=== PATIENT | female | born 1955 | race Caucasian/White ===

== ENCOUNTER 2017-07-10 08:00 | Outpatient (CLI) | payer BC | END 2017-07-10 08:01 | disposition home or self-care (01) | LOC: BICMAMMO 08:00 | PROVIDERS: ATTEND Family Medicine | DX: N63.20 Unspecified lump in the left breast, unspecified quadrant (principal) | CPT/HCPCS: 77066; G0204; G0279 ==

== ENCOUNTER 2018-06-21 09:32 | Outpatient (CLI) | payer MEDICARE, BC | END 2018-06-21 09:33 | disposition home or self-care (01) | LOC: BICULT 09:32 | PROVIDERS: ATTEND Family Medicine | DX: N63.20 Unspecified lump in the left breast, unspecified quadrant (principal); Z80.3 Family history of malignant neoplasm of breast | CPT/HCPCS: 77066; G0279 ==

== ENCOUNTER 2019-01-07 08:14 | Outpatient (CLI) | payer MEDICARE, BC ==
--- NOTE | 2019-01-07 08:55 | RAD ---
XR Knee Rt 4 View STANDARD HISTORY: Pain in right knee FINDINGS: No fracture or dislocation is identified. Degenerative changes are present.
--- NOTE | 2019-01-07 11:01 | RAD ---
LEFT KNEE FOUR VIEWS: HISTORY: Left knee pain. FINDINGS: Joint spaces are preserved. Mild tricompartmental osteophytosis. No acute fracture, dislocation, or fluid distention of the suprapatellar bursa. IMPRESSION: Very mild osteoarthritic changes, left knee. POS: [facility]
--- NOTE | 2019-01-07 11:03 | RAD ---
RADIOGRAPH LEFT HIP TWO VIEWS: 01/07/2019 HISTORY: A 63-year-old female with left hip pain. FINDINGS: No fracture or dislocation. Femoral head contour is maintained. No subcapital osteophytes. No high -grade osteophytosis of the acetabular roof. Hip joint space is maintained. There are mild to moder ate degenerative changes at the left SI joint. IMPRESSION: 1. Normal left hip. 2. 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 POS: [facility]
--- NOTE | 2019-01-07 11:04 | RAD ---
RIGHT HIP TWO VIEWS: 01/07/2019 PROVIDED CLINICAL HISTORY: Right hip pain. FINDINGS: There is no evidence for fracture or other acute osseous abnormality. Alignment appears anatomic. T ight hip joint space appears preserved. IMPRESSION: No evidence for acute osseous abnormality or significant arthropathy involving the right hip. POS: [facility]
== END 2019-01-07 08:15 | disposition home or self-care (01) ==
LOC: BICRAD 08:14
PROVIDERS: ATTEND Family Medicine
DX: M25.562 Pain in left knee (principal); M25.561 Pain in right knee; M25.552 Pain in left hip; M25.551 Pain in right hip; M53.3 Sacrococcygeal disorders, not elsewhere classified; M17.12 Unilateral primary osteoarthritis, left knee

== ENCOUNTER 2019-02-21 20:30 | Outpatient (CLI) | payer MEDICARE, BC | END 2019-02-21 20:31 | disposition home or self-care (01) | LOC: SLEEPLAB 20:30 | PROVIDERS: ATTEND Family Medicine | DX: G47.33 Obstructive sleep apnea (adult) (pediatric) (principal); E66.9 Obesity, unspecified; R06.83 Snoring; I10 Essential (primary) hypertension; E11.9 Type 2 diabetes mellitus without complications; R53.83 Other fatigue; R09.89 Other specified symptoms and signs involving the circulatory and respiratory systems; Z68.33 Body mass index [BMI] 33.0-33.9, adult | CPT/HCPCS: 95811 ==

== ENCOUNTER 2019-06-23 11:12 | Outpatient (CLI) | payer MEDICARE, BC ==
--- NOTE | 2019-06-23 12:34 | MMO ---
Bilateral MAMMO Bilat Screen DDI+EFREN. CLINICAL HISTORY: Patient is 64 years old and is seen for screening. The patient has no family history of breast cancer. The patient has no personal history of cancer. The patient has a history of right Excisional Biopsy in April, - benign. VIEWS: The views performed were: bilateral craniocaudal with tomosynthesis and bilateral mediolateral oblique with tomosynthesis. FILMS COMPARED: The present examination has been compared to prior imaging studies performed at [facility] on 12/07/2014, 12/14/2015, 07/10/2017 and 06/21/2018. This study has been interpreted with the assistance of computer-aided detection. MAMMOGRAM FINDINGS: There are scattered fibroglandular densities. There are stable benign appearing calcifications seen in both breasts. There are no suspicious masses, suspicious calcifications, or new areas of architectural distortion. IMPRESSION: THERE IS NO MAMMOGRAPHIC EVIDENCE OF MALIGNANCY. A ROUTINE FOLLOW-UP MAMMOGRAM IN 1 YEAR IS RECOMMENDED. THE RESULTS OF THIS EXAM WERE SENT TO THE PATIENT. ACR BI-RADS Category 2 - Benign finding MAMMOGRAPHY NOTE: 1. A negative mammogram report should not delay a biopsy if a dominant of clinically suspicious mass is present. 2. Approximately 10% to 15% of breast cancers are not detected by mammography. 3. Adenosis and dense breasts may obscure an underlying neoplasm. Reported by: AMADOR FENG MD Electonically Signed: [id number]
== END 2019-06-23 11:13 | disposition home or self-care (01) ==
LOC: BICMAMMO 11:12
PROVIDERS: ATTEND Family Medicine
DX: Z12.31 Encounter for screening mammogram for malignant neoplasm of breast (principal); Z91.89 Other specified personal risk factors, not elsewhere classified
CPT/HCPCS: 77063; 77067

== ENCOUNTER 2019-09-24 13:12 | Outpatient (CLI) | payer MEDICARE, BC | END 2019-09-24 13:13 | disposition home or self-care (01) | LOC: DTY/OP 13:12 | PROVIDERS: ATTEND Family Medicine | DX: E11.65 Type 2 diabetes mellitus with hyperglycemia (principal) | CPT/HCPCS: 97802 ==

== ENCOUNTER 2020-07-28 10:43 | Outpatient (CLI) | payer MEDICARE, BC ==
--- NOTE | 2020-07-28 11:47 | MMO ---
Bilateral MAMMO Bilat Screen DDI+EFREN. CLINICAL HISTORY: Patient is 65 years old and is seen for screening. The patient has the following family history of breast cancer: cousin female, at age 35, malignant (generic). The patient has no personal history of cancer. The patient has a history of right Excisional Biopsy in April, - benign. VIEWS: The views performed were: bilateral craniocaudal with tomosynthesis and bilateral mediolateral oblique with tomosynthesis. FILMS COMPARED: The present examination has been compared to prior imaging studies performed at [facility] on 12/14/2015, 07/10/2017, 06/21/2018 and 06/23/2019. This study has been interpreted with the assistance of computer-aided detection. MAMMOGRAM FINDINGS: There are scattered fibroglandular densities. Finding 1: There are stable benign appearing calcifications seen in both breasts. Finding 2: There are multiple stable fat containing, round masses of varying size with circumscribed margins seen in the left breast. Finding 3: There is a focal asymmetry measuring 10 millimeters with indistinct margins and associated amorphous or indistinct calcifications seen in the outer region of the right breast. IMPRESSION: FINDING 1: STABLE CALCIFICATIONS IN BOTH BREASTS ARE BENIGN. FINDING 2: STABLE MASSES IN THE LEFT BREAST ARE BENIGN. FINDING 3: FOCAL ASYMMETRY IN THE RIGHT BREAST REQUIRES ADDITIONAL EVALUATION. ADDITIONAL PROJECTIONS (RIGHT CRANIOCAUDAL SPOT COMPRESSION; RIGHT CRANIOCAUDAL SPOT COMPRESSION MAGNIFICATION; RIGHT MEDIOLATERAL OBLIQUE SPOT COMPRESSION; RIGHT MEDIOLATERAL SPOT COMPRESSION; AND RIGHT MEDIOLATERAL SPOT COMPRESSION MAGNIFICATION) ARE RECOMMENDED. AN ULTRASOUND EXAM IS RECOMMENDED IF NEEDED. ADDITIONAL IMAGING. THE RESULTS OF THIS EXAM WERE SENT TO THE PATIENT. ACR BI-RADS Category 0 - Incomplete: Need additional imaging evaluation. [facility] will notify the patient of the need for additional imaging services. MAMMOGRAPHY NOTE: 1. A negative mammogram report should not delay a biopsy if a dominant of clinically suspicious mass is present. 2. Approximately 10% to 15% of breast cancers are not detected by mammography. 3. Adenosis and dense breasts may obscure an underlying neoplasm. Reported by: STEFFANIE BLOUNT MD Electonically Signed: [id number]
== END 2020-07-28 10:44 | disposition home or self-care (01) ==
LOC: BICMAMMO 10:43
PROVIDERS: ATTEND Family Medicine
DX: Z12.31 Encounter for screening mammogram for malignant neoplasm of breast (principal); Z80.3 Family history of malignant neoplasm of breast; Z91.89 Other specified personal risk factors, not elsewhere classified; R92.1 Mammographic calcification found on diagnostic imaging of breast; N63.20 Unspecified lump in the left breast, unspecified quadrant; N64.89 Other specified disorders of breast
CPT/HCPCS: 77063; 77067

== ENCOUNTER 2020-07-29 14:51 | Outpatient (CLI) | payer MEDICARE, BC ==
--- NOTE | 2020-07-29 16:02 | MMO ---
Right Breast MAMMO Unilat Diag DDI RT+EFREN. CLINICAL HISTORY: Patient is 65 years old and is seen for diagnostic exam. The patient has the following family history of breast cancer: cousin female, at age 35, malignant (generic). The patient has no personal history of cancer. The patient has a history of right Excisional Biopsy in April, - benign. VIEWS: The views performed were: right craniocaudal spot compression magnification; right craniocaudal spot compression with tomosynthesis; right mediolateral oblique spot compression with tomosynthesis; right mediolateral spot compression magnification; and right mediolateral with tomosynthesis. FILMS COMPARED: The present examination has been compared to prior imaging studies performed at [facility] on 06/21/2018, 06/23/2019, 07/28/2020 and 07/29/2020. This study has been interpreted with the assistance of computer-aided detection. MAMMOGRAM FINDINGS: Additional views were performed. The focal density with tiny calcs @ 9:00 right breast corresponds to a solid mass on US and should be biopsied. IMPRESSION: FINDING IN THE RIGHT BREAST IS SUSPICIOUS. AN ULTRASOUND-GUIDED BREAST BIOPSY IS RECOMMENDED. THE RESULTS OF THIS EXAM WERE SENT TO THE PATIENT. ACR BI-RADS Category 4 - Suspicious abnormality - biopsy should be considered D/W pt in person @ 3:45 pm MAMMOGRAPHY NOTE: 1. A negative mammogram report should not delay a biopsy if a dominant of clinically suspicious mass is present. 2. Approximately 10% to 15% of breast cancers are not detected by mammography. 3. Adenosis and dense breasts may obscure an underlying neoplasm. Reported by: HERMILA ABEBE MD Electonically Signed: [id number]
--- NOTE | 2020-07-29 16:10 | ULT ---
LIMITED RIGHT BREAST ULTRASOUND: 07/29/20 HISTORY: Abnormal mammogram. FINDINGS: Correlation is made with mammograms of 07/28/20 and 07/29/20. Sonographic evaluation of the outer region of the right breast demonstrates an approximately 1 x 1.2 x 0.8 cm solid appearing somewhat shadowing mass at the 9 o'clock position of the right breast, 3 cm from the nipple in the region of the mammographic abnormality. There is some flow demonstrated to the mass. The tiny calcifications noted on the mammogram are vaguely seen on the ultrasound. IMPRESSION: BI-RADS 4: Suspicious Abnormality - Biopsy Should Be Considered Usually requires biopsy. Ultrasound guided biopsy is recommended. Discussed in person with the patient at 3:45 p.m. POS: [facility]
== END 2020-07-29 14:52 | disposition home or self-care (01) ==
LOC: BICMAMMO 14:51
PROVIDERS: ATTEND Family Medicine
DX: R92.8 Other abnormal and inconclusive findings on diagnostic imaging of breast (principal)
CPT/HCPCS: 76642; 77065; G0279

== ENCOUNTER → 2020-08-05 | Day surgery (SDC) | payer MEDICARE, BC ==
--- NOTE | 2020-08-05 13:57 | MMO ---
FILMS COMPARED: The present examination has been compared to prior imaging studies performed at [facility] on 06/23/2019, 07/28/2020 and 07/29/2020. MAMMOGRAM FINDINGS: There is a biopsy clip seen in the anterior of the right breast. The clip is at the 9:00 - 10:00 position, at the targeted small breast lesion. IMPRESSION: BIOPSY CLIP IN THE RIGHT BREAST IS CONFIRMED UTILIZING POST PROCEDURE MAMMOGRAM. Reported by: FABIEN CHU MD Electonically Signed: [id number]
--- NOTE | 2020-08-05 16:08 | ULT ---
ULTRASOUND-GUIDED BREAST BIOPSY RIGHT: DATE: 08/05/2020 HISTORY: 65-Year-old female with mass in 9:00 position, superficial location, right breast. TECHNIQUE: Signed informed consent obtained. Breast skin prepared and draped in usual sterile fashion. Procedure performed under ultrasound guidance. 25-gauge needle used to apply buffered lidocaine superficially and deeply. 13 gauge introducer needle advanced to the edge of targeted lesion. 14 gaug e advanced through the introducer needle in coaxial fashion. Biopsy gun fired, yielding core tissue sample, which was placed in formalin. This was repeated, for a total of 3 passes. A postbiopsy clip w as deployed through the introducer needle. Introducer needle was removed. Manual compression was applied until hemostasis was achieved. Patient tolerated the procedure well. No complications. IMPRESSION: Technically successful 14 gauge core biopsy of right breast lesion x 3
== END ==
LOC: BICULT 12:38
PROVIDERS: ATTEND Family Medicine
PROC: 0H9T3ZX Drainage of Right Breast, Percutaneous Approach, Diagnostic (ICD-10-PCS; principal; 2020-08-05)
DX: C50.811 Malignant neoplasm of overlapping sites of right female breast (principal)
CPT/HCPCS: 19083; 88305; 88341; 88342

== ENCOUNTER 2020-09-16 13:14 | Outpatient (CLI) | payer MEDICARE, BC ==
[2020-09-16 14:45] LABS: #Eosinphils 0.1 10x3/uL (0.0-0.5); #Monocytes 0.5 10x3/uL (0.0-1.1); %Basophils 0.7 % (0.0-2.0); %Eosinophils 1.8 % (0.0-6.0); %Monocytes 7.5 % (0.0-10.0); %Neutrophils 49.5 % (40.0-75.0); Hemoglobin 12.8 g/dL (12.0-15.5); Mean Corpuscular HGB CONC 32.7 g/dL (32.0-36.0); Mean Corpuscular Hemoglobin 32.2 pg (27.0-33.0); Mean Corpuscular Volume 98.7 fl (81.6-98.3); Mean Platelet Volume 10.9 fl (7.4-10.4); Platelet Count 286 10x3/uL (150-450); RBC Distribution Width 12.4 % (11.5-14.5); Red Blood Cell (RBC) Count 3.97 10x6/uL (3.90-5.03); White Blood Cell (WBC) Count 6.1 10x3/uL (3.5-10.5)
[2020-09-16 15:18] LABS: Anion Gap 14 mmol/L (10-20); BUN (Urea Nitrogen) 15 mg/dL (9.8-20.1); Calc. Creatinine Clearance 0 mL/min (70-130); Calcium 10.2 mg/dL (7.8-10.44); Carbon Dioxide 26 mmol/L (23-31); Chloride 105 mmol/L (98-107); Glucose 207 mg/dL (80-115); Potassium 4.1 mmol/L (3.5-5.1); Sodium 141 mmol/L (136-145)
--- NOTE | 2020-09-16 21:05 | EKG ---
Test Reason : Blood Pressure : / mmHG Vent. Rate : 073 BPM Atrial Rate : 073 BPM P-R Int : 150 ms QRS Dur : 080 ms QT Int : 394 ms P-R-T Axes : 045 048 044 degrees QTc Int : 434 ms Normal sinus rhythm Normal ECG No previous ECGs available Confirmed by Kedar MOORE ([id number]) on 09/16/2020 9:05:26 PM Referred By: KINGS Confirmed By:Kedar MOORE
== END 2020-09-16 13:15 | disposition home or self-care (01) ==
LOC: LABBT 13:14
PROVIDERS: ATTEND Specialist
DX: Z01.818 Encounter for other preprocedural examination (principal); C50.911 Malignant neoplasm of unspecified site of right female breast; Z20.822 Contact with and (suspected) exposure to COVID-19
CPT/HCPCS: 80048; 85025; 93005; 93010

== ENCOUNTER 2020-09-21 07:20 | Day surgery (SDC) | payer MEDICARE, BC ==
[2020-09-20 12:21] VITALS: BMI 32.0
[2020-09-21] MEDS ORDERED: Ketorolac Tromethamine 30 MG/ML VIAL ONE ×2 (09:01→10:39)
[2020-09-21] MEDS ORDERED: Acetaminophen 500 MG TAB ONE (09:01)
--- NOTE | 2020-09-21 10:09 | NM ---
EXAM: NM Lymphoscintigraphy PROVIDED CLINICAL HISTORY: Malignant neoplasm of unspecified site right female breast COMPARISON: None FINDINGS: Approximately 422 uCi technetium 99m sulfur colloid was administered subcutaneously and intradermally in a right periareolar location. Immediate imaging was performed which demonstrates 2 closely adjacent foci of increased uptake of radiotracer overlying the anterior axilla likely corresponding t o sentinel lymph node. After imaging, patient was transported to surgery for excisional biopsy. IMPRESSION: Focal areas of increased uptake of radiotracer in the anterior right axilla likely corresponding to s entinel lymph node.
[2020-09-21] MEDS ORDERED: diphenhydrAMINE 50 MG/ML VIAL ONE (10:39)
[2020-09-21] MEDS ORDERED: Lidocaine 1% PF 5 ML VIAL ONE (10:39)
[2020-09-21] MEDS ORDERED: Ondansetron PF 4 MG/2 ML Vial ONE (10:39)
[2020-09-21] MEDS ORDERED: ePHEDrine 50 MG/ML VIAL ONE (10:39)
[2020-09-21] MEDS ORDERED: PROPOFOL 200 MG/20 ML VIAL ONE (10:39)
[2020-09-21] MEDS ORDERED: Fentanyl 100 MCG/2 ML VIAL ONE ×2 (11:37→13:06)
[2020-09-21] MEDS ORDERED: Lidocaine 1% w/Epinephrine 1:100K 20 ML VIAL ONE (11:41)
[2020-09-21] MEDS ORDERED: Bupivacaine 0.25% HCL 30 ML VIAL ONE (11:41)
[2020-09-21] MEDS ORDERED: Isosulfan Blue 50 MG/5 ML VIAL ONE (11:41)
--- NOTE | 2020-09-21 14:45 | RAD ---
CHEST 1 VIEW: HISTORY: MediPort placement. FINDINGS: Heart size is enlarged. Left-sided MediPort catheter has been placed. Catheter tip overlies the sup erior vena cava. No pneumothorax. IMPRESSION: MediPort catheter placement. No pneumothorax. POS: [facility]
--- NOTE | 2020-09-22 06:52 | OP ---
DATE OF PROCEDURE: 09/21/2020 PREOPERATIVE DIAGNOSIS: Right breast cancer. POSTOPERATIVE DIAGNOSIS: Right breast cancer. PROCEDURES PERFORMED: Placement of left subclavian standard-sized MediPort, ultrasound-guided needle localization of right breast cancer, right breast needle localized lumpectomy, right axillary sentinel lymph node biopsy. ANESTHESIA: General endotracheal. INDICATIONS: The patient is a 65-year-old female. She has been diagnosed with a relatively small (less than 1 cm) invasive ductal carcinoma of the upper outer right breast at about the 10 o'clock Radian. This is a triple negative breast cancer and postoperative chemotherapy has been recommended. For this reason, a MediPort will be placed as well as treatment of the cancer. DESCRIPTION OF PROCEDURE: Informed consent was obtained. Lymphoscintigraphy was performed by Radiology, revealing right axillary sentinel lymph nodes. She was taken to the operating room where general endotracheal anesthesia was obtained with the patient in supine position. The right breast and axilla and left chest were prepped with ChloraPrep and draped in sterile fashion. Attention was turned first to the left chest. Local anesthetic was infiltrated using a mixture of 1% lidocaine with epinephrine 0.25% Marcaine. Large gauge needle was passed under the clavicle in the subclavian vein. Guidewire was passed through the needle. Needle was removed, additional local anesthetic was infiltrated, and an incision was created based on needle insertion site. Subcutaneous pocket was dissected extending inferiorly. Introducer dilator was passed over the guidewire. The guidewire was removed. Catheter was placed through the introducer. All this was performed under fluoroscopic guidance. The introducer was removed in the usual peel-apart fashion. The catheter was trimmed to appropriate length and secured to the locking hub of the MediPort. The port was secured to pectoral fascia with two interrupted sutures of 3-0 Prolene. The wound was closed in layers with 3-0 and 4-0 Monocryl. Dermabond was placed externally. The port was accessed and aspirated easily and was flushed with heparinized saline. Fluoroscopic images showed appropriate placement of port and catheter. Attention was turned to the right breast. Ultrasound was utilized to identify the area of malignancy. This was at about the 10 o'clock Radian, was relatively superficial. This was marked on the skin in a grid type fashion to demonstrate its location. Attention was then turned to the right axilla. Local anesthetic was infiltrated. A transverse incision was created. Dissection was carried through skin and subcutaneous tissue. Dissection was carried through the clavipectoral fascia. Utilizing both Neoprobe and identification of blue dye, I was able to identify four separate sentinel lymph nodes. There was one dominant node that was brightly blue-stained and radioactive. The other three were less radioactive and one of them contained no blue dye. Each of the four nodes were dissected circumferentially and removed intact. All investing vessels were divided between clamps and 3-0 silk ties. Each of the four was submitted for permanent Pathology. Meticulous hemostasis was obtained within the wound. It was closed in layers with 3-0 and 4-0 Monocryl. Dermabond was placed externally later in the case. Attention was turned to the right breast. Utilizing ultrasound, a localizing needle was passed through the malignancy in a medial to lateral fashion. A transverse incision was created based on needle insertion site. This was relatively close to the areola. I, therefore, canted the incision in oblique fashion to extend over the top of the areola going through it. Dissection was carried through skin and subcutaneous tissue. Flaps were raised in all directions. The specimen was grasped with Allis clamps and widely dissected around the localizing needle. Ultrasound was used during the procedure to help clarify margins. The specimen was removed intact. It was interrogated with ultrasound and the margins appeared to be clear by ultrasound evaluation. The specimen was tagged for orientation with sutures and submitted for specimen mammography, which showed the clip to be present within the lesion. It was then submitted for permanent Pathology. Meticulous hemostasis was obtained within the wound using electrocautery. The skin flap on the inferior aspect had been thin to the point that it was not closed appropriately, and I, therefore, excised some of the skin overlying the excision site in a somewhat elliptical fashion. A small amount of skin on the anterior and the superior aspect was also excised. The wound was then closed in layers with 3-0 and 4-0 Monocryl. Dermabond was placed externally. There were no complications. Before prepping the patient, I infiltrated 3 mL of Lymphazurin in the periareolar subdermal tissue around the right areola and massaged the breast for 5 minutes. This is to assist with sentinel node identification. Job ID: [id number]
== END 2020-09-21 16:45 | disposition home or self-care (01) ==
LOC: SDC 07:20
PROVIDERS: ATTEND Specialist
PROC: 0HBT0ZZ Excision of Right Breast, Open Approach (ICD-10-PCS; principal; 2020-09-21)
PROC: 07B50ZX Excision of Right Axillary Lymphatic, Open Approach, Diagnostic (ICD-10-PCS; 2020-09-21)
PROC: 02HV33Z Insertion of Infusion Device into Superior Vena Cava, Percutaneous Approach (ICD-10-PCS; 2020-09-21)
DX: C50.411 Malignant neoplasm of upper-outer quadrant of right female breast (principal); I10 Essential (primary) hypertension; E78.5 Hyperlipidemia, unspecified; K21.9 Gastro-esophageal reflux disease without esophagitis; E11.9 Type 2 diabetes mellitus without complications; Z17.1 Estrogen receptor negative status [ER-]; Z79.84 Long term (current) use of oral hypoglycemic drugs; Z79.899 Other long term (current) drug therapy; Z91.040 Latex allergy status
CPT/HCPCS: 19301; 36561; 38525; 38900; 71045; 76098; 78195; A9541; C1788; Q9968; 88307; 88342; J0690; J1200; J1642; J1885; J2405; J2704; J3010; J3490; S0020

== ENCOUNTER 2020-10-08 12:14 | Outpatient (CLI) | payer MEDICARE, BC | END 2020-10-08 12:15 | disposition home or self-care (01) | LOC: ULT 12:14 | PROVIDERS: ATTEND Internal Medicine Hematology & Oncology | DX: Z51.11 Encounter for antineoplastic chemotherapy (principal); C50.411 Malignant neoplasm of upper-outer quadrant of right female breast; I08.1 Rheumatic disorders of both mitral and tricuspid valves; Z79.899 Other long term (current) drug therapy | CPT/HCPCS: 93306 ==

== ENCOUNTER 2020-12-16 08:34 | Day surgery (SDC) | payer MEDICARE, BC ==
[2020-12-16] MEDS ORDERED: Acetaminophen 500 MG TAB PO PRN (08:40)
[2020-12-16] MEDS ORDERED: diphenhydrAMINE 25 MG CAP PO PRN (08:40)
[2020-12-16] MEDS ORDERED: Sodium Chloride 0.9% 20 ML ONE (08:54)
[2020-12-16 12:12] VITALS: BP 124/72; TEMP 98.2
[2020-12-16 12:19] LABS: #Eosinphils 0.1 thou/uL (0.0-0.7); #Lymphocytes 0.7 thou/uL (1.20-3.40); #Monocytes 0.4 thou/uL (0.11-0.59); #Neutrophils 2.3 thou/uL (1.40-6.50); %Basophils 0.3 % (0.0-1.0); %Lymphocytes 21.2 % (21.0-51.0); %Neutrophils 65.4 % (42.0-75.0); Hemoglobin 9.2 g/dL (12.0-16.0); Mean Corpuscular HGB CONC 35.4 g/dL (32.0-36.0); Mean Corpuscular Hemoglobin 34.1 pg (27.0-31.0); Mean Corpuscular Volume 96.2 fL (78.0-98.0); Mean Platelet Volume 7.3 fL (7.4-10.4); Platelet Count 328 thou/uL (130-400); RBC Distribution Width 16.1 % (11.5-14.5); Red Blood Cell (RBC) Count 2.69 mill/uL (4.20-5.40); White Blood Cell (WBC) Count 3.5 thou/uL (4.8-10.8)
== END 2020-12-16 12:12 | disposition home or self-care (01) ==
LOC: ONC/OP 08:34
PROVIDERS: ATTEND Internal Medicine Hematology & Oncology
PROC: 30233N1 Transfusion of Nonautologous Red Blood Cells into Peripheral Vein, Percutaneous Approach (ICD-10-PCS; principal; 2020-12-16)
DX: D64.9 Anemia, unspecified (principal); D69.6 Thrombocytopenia, unspecified; Z91.040 Latex allergy status
CPT/HCPCS: 36430; 36591; 85025; 86850; 86900; 86901; J1642; P9016; Q0163

== ENCOUNTER 2022-10-23 14:34 | Outpatient (CLI) | payer MEDICARE, BC | END 2022-10-23 14:35 | disposition home or self-care (01) | LOC: BICMAMMO 14:34 | PROVIDERS: ATTEND Specialist | DX: C50.911 Malignant neoplasm of unspecified site of right female breast (principal); Z80.3 Family history of malignant neoplasm of breast | CPT/HCPCS: 77066; G0279 ==